=== PATIENT | male | born 1985 | race Caucasian/White ===

== ENCOUNTER → 2023-11-14 08:16 | Outpatient (BNVA) | payer OTHER, SELFPAY | PROVIDERS: Visit Provider Internal Medicine | DX: S76.312A Strain of muscle, fascia and tendon of the posterior muscle group at thigh level, left thigh, initial encounter (principal); X50.1XXA Overexertion from prolonged static or awkward postures, initial encounter | CPT/HCPCS: 73564; 99203 ==

== ENCOUNTER → 2023-11-21 08:04 | Outpatient (BNVA) | payer OTHER, SELFPAY | PROVIDERS: Visit Provider Internal Medicine | DX: S76.312A Strain of muscle, fascia and tendon of the posterior muscle group at thigh level, left thigh, initial encounter (principal); X50.1XXA Overexertion from prolonged static or awkward postures, initial encounter | CPT/HCPCS: 99213 ==

== ENCOUNTER 2023-11-29 10:01 | Outpatient (REF) | payer OTHER, SELFPAY ==
--- NOTE | ~2023-11-29 | XR_ITS ---
EXAMINATION: Right tibia and fibula x-ray. CLINICAL INFORMATION: History of metal exposure, pre-MRI evaluation COMPARISON: None available. TECHNIQUE: Frontal and lateral X-rays of right tibia and fibula FINDINGS: BONES: Bony structures are intact. There is no focal bone destruction or periosteal reaction seen. JOINTS: Alignment of joints is normal. SOFT TISSUE: 3 radiopaque possibly metallic foreign bodies are seen in medial right leg. The 2 larger 0.6 cm foreign bodies are seen in medial mid right leg and distal posterior right leg soft tissue overlapping posterior distal right tibial shaft. The tiny 0.2 cm foreign body is seen in proximal posterior right calf soft tissue. No abnormal air collection is seen. XR/XR pre mri screening IMPRESSION: 1. 3 radiopaque possibly metallic foreign bodies are seen in medial and posterior right leg soft tissue. 2. No evidence of acute fracture or dislocation.
== END 2023-11-29 10:02 | disposition home or self-care (01) ==
LOC: HO.XRAY 10:01
PROVIDERS: Absent Provider Internal Medicine; PCP Nurse Practitioner Family; Visit Provider Internal Medicine
DX: Z13.89 Encounter for screening for other disorder (principal)

== ENCOUNTER 2023-12-01 13:15 | Outpatient (REF) | payer OTHER, SELFPAY ==
--- NOTE | ~2023-12-01 | MR_ITS ---
EXAMINATION: MR KNEE WITHOUT CONTRAST, RIGHT CLINICAL INFORMATION: Hyperflexed knee pain.. Patient reports Tucker's cyst. COMPARISON: X-ray the right knee October 2023. TECHNIQUE: MRI of the knee without contrast was performed using routine sequences on a high-field scanner. FINDINGS: MENISCI: Medial Meniscus: Intact Lateral Meniscus: Intact LIGAMENTS: Cruciate: Intact Collateral: Intact EXTENSOR MECHANISM: There is some thickening of the proximal patella tendon perhaps related to old partial tear. ARTICULAR CARTILAGE/BONE: Patellofemoral Compartment: This some minimal cartilage heterogeneity of the medial facet of the patella. Trochlear cartilage normal overall minimal patellofemoral arthrosis . There is deformity and prominence of the distal pole of patella suspicious for old healed fracture. Medial Compartment: Normal Lateral Compartment: There is nonuniform cartilage heterogeneity of the full-thickness at the junction of the posterior weightbearing nonweightbearing portion of the lateral femoral articular surface. This extends over 15 mm AP and 5 mm transverse. See sagittal images 19 and 20 series 4 and axial images 16 and 17 series 2 and coronal image 22 series 5. Tibial articular surface is normal. Findings indicative of focal/mild arthrosis . JOINT FLUID AND BURSAE: There is a moderate-sized Tucker's cyst. There is a mild joint effusion. I do not see loose body. MR/MR knee RT wo con IMPRESSION: 1. Minimal patellofemoral arthrosis. 2. Focal/mild arthrosis of the lateral compartment. 3. Probable old healed fracture of the distal pole of the patella. 4. Thickening of the proximal patella tendon which I suspect is related to old partial tear. 5. Mild joint effusion and moderate-sized Tucker's cyst.
== END 2023-12-01 13:16 | disposition home or self-care (01) ==
LOC: HO.MRI 13:15
PROVIDERS: PCP Nurse Practitioner Family; Visit Provider Internal Medicine
DX: M25.561 Pain in right knee (principal)
CPT/HCPCS: 73721

== ENCOUNTER → 2023-12-05 10:07 | Outpatient (BNVA) | payer OTHER, SELFPAY | PROVIDERS: PCP Nurse Practitioner Family; Visit Provider Internal Medicine | DX: M25.461 Effusion, right knee (principal); S76.312D Strain of muscle, fascia and tendon of the posterior muscle group at thigh level, left thigh, subsequent encounter; S82.001D Unspecified fracture of right patella, subsequent encounter for closed fracture with routine healing; X50.1XXD Overexertion from prolonged static or awkward postures, subsequent encounter | CPT/HCPCS: 99214 ==

== ENCOUNTER 2023-12-13 08:00 | Outpatient (RCR) | payer OTHER, SELFPAY ==
--- NOTE | 2023-11-22 09:08 | MHC.PT.EP ---
[facility] [place] Office [place] Office [place] Office [address] [phone] F: [phone] F: [phone] F: [phone] F: [phone] Physical Therapy Plan of Care Date of Evaluation: 11/22/23 Date of Surgery: NA Diagnosis: Hyper-flexed R knee Assessment: Harvey is a 38 year old male who is referred to PT for hyper-flexed R knee . He reports of injuring his R Knee at work about 1 week back. 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 On PT examination he presented with TTP over distal hamstring, proximal calf, segal's cyst, 4/10 pain/ unsteadiness with running, walking and stairs, R knee ROM, decreased R LE strength, altered posture, balance and gait. He lives with family and is independent with ADLS but has pain and difficulty playing with his kids. 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 He would benefit from skilled PT to address the aforementioned impairments and improve tolerance to functional activities. Frequency and Duration: The patient will be seen 2/week for 5 weeks Short Term Goals: 1. Pt will have 50% decrease in pain which will enable him to walk, and negotiate stairs without pain in 2 weeks. 2. Pt will demonstrate good awareness of knee position and correct landing mechanics from a jump in 3 weeks. [employer] Goals: 1. Pt will demonstrate an increase in muscle strength by grade which will enable him to perform squats and return to running without feeling unsteady in 5 weeks. 2. Pt will be independent with HEP and return to PLOF in 5 weeks. Treatment Plan: Modalities to reduce pain, spasms and effusion. Manual therapy to restore motion and function. Therapeutic exercise to improve strength and flexibility. Neuromuscular re-education for posture and balance. Therapeutic activities to return to functional activities of daily living. Electronically signed by: Jessica Smith PT DPT Please sign and return to therapist. Thank you for your referral.
--- NOTE | 2023-12-13 08:54 | MHC.PT.DC ---
[facility] [place] Office [place] Office [place] Office [address] Oriana Anton [address] [phone] F: [phone] F: [phone] F: [phone] F: [phone] Physical Therapy Discharge Report Diagnosis: Hyper-flexed R knee Date of Surgery: NA Date of Evaluation: 11/22/23 Date of Discharge: 12/13/23 Treatments to Date: 6 Cancellations to Date: 0 No Shows to Date: 1 Discharge Status: Achieved Goals Improved Function Independent with HEP Discharge Summary: Harvey completed 6 PT visits and has achieved all goals set for him and is independent with all HEP. He returned to PLOF. He is therefore being d/c from PT. Harvey was in agreement with the plan. Electronically signed by: Jessica Smith, PT DPT Please sign and return to therapist. Thank you for your referral.
== END 2023-12-13 08:54 | disposition home or self-care (01) ==
LOC: HO.PT 08:00
PROVIDERS: PCP Internal Medicine Endocrinology, Diabetes & Metabolism; Visit Provider Internal Medicine
DX: M25.561 Pain in right knee (principal)
CPT/HCPCS: 97110; 97140; 97161; 97530